=== PATIENT | female | born 1985 | race Caucasian/White ===

== ENCOUNTER → 2017-06-26 09:30 | Outpatient (CLI) | payer OTHER, MEDICAID, SELFPAY ==
[2017-06-26 10:26] LABS: Alanine Aminotransferase 163 IU/L (9-52); Albumin 4.4 g/dL (3.5-5.0); Albumin Globulin Ratio 1.2 (1.0-2.8); Alkaline Phosphatase 98 U/L (38-126); Aspartate Aminotransferase 92 IU/L (14-36); Bilirubin Total 0.7 mg/dL (0.2-1.3); Calcium 8.9 mg/dL (8.4-10.2); Estimated Glomerular Filt Rate > 60.0 mL/min (>60); Globulin 3.6 g/dL (1.7-4.1); Glucose 111 mg/dL (70-100); HEMOLYSIS < 15 (0-50); Sodium 140 mmol/L (137-145)
[2017-06-28 10:53] LABS: Hepatitis A Antibody IgM NONREACTIVE; Hepatitis Acute Panel Interp 0.06; Hepatitis B Core Antibody IgM NONREACTIVE; Hepatitis B Surface Antigen NONREACTIVE; Hepatitis C Antibody NONREACTIVE
[2017-06-29 16:46] LABS: HCG Quantitative /Beta subunit < 2.39 mIU/mL
== END ==
PROVIDERS: PCP Family Medicine; Visit Provider Family Medicine
DX: R74.8 Abnormal levels of other serum enzymes (principal); Z32.00 Encounter for pregnancy test, result unknown
CPT/HCPCS: 36415; 80053; 80074; 84702

== ENCOUNTER → 2017-07-07 15:29 | Outpatient (CLI) | payer OTHER, MEDICAID, SELFPAY ==
--- NOTE | 2017-07-07 15:32 | DI.US.S_ITS ---
PROCEDURE: US ABDOMEN COMPLETE INDICATIONS: elevated LFT's TECHNIQUE: Real-time scanning was performed of the abdominal and retroperitoneal organs, with image documentation. COMPARISON: [facility], US, ABDOMEN COMPLETE, 07/23/2015, 8:08. FINDINGS: Liver: Liver is diffusely increased in echogenicity. No focal hepatic abnormalities identified. Normal hepatic size. Gallbladder: The 2.1 cm solitary gallstone. No gallbladder wall thickening. Biliary ducts: Intrahepatic bile ducts are non-dilated. Extrahepatic bile duct not well-seen. Normal is 6-7 mm or less in diameter, or 10 mm or less post-cholecystectomy. Pancreas: Visualized portions of the pancreas are sonographically normal. Spleen: Spleen is normal in size and homogeneous in echotexture. Kidneys: Kidneys are normal in size and echotexture. Right kidney measures 12 cm long; left kidney measures 12 cm long. No hydronephrosis or nephrolithiasis. No solid masses. Aorta: Visualized aorta is normal in caliber at less than 3 cm. Iliacs: Not well-seen. IVC: Not well-seen. Miscellaneous: No free abdominal fluid. IMPRESSION: 1. Increased hepatic echogenicity noted likely related to fatty infiltration of the liver but other sources of hepatocellular disease cannot be excluded. Recommend clinical correlation. 2. Cholelithiasis. Dictated by: Fer ANGEL Interpreted: Beka Shetty MD on 07/07/2017 at 16:38 Approved by: Beka Shetty M.D. on 07/07/2017 at 16:44
[2017-07-07 16:29] LABS: Alanine Aminotransferase 163 IU/L (9-52); Aspartate Aminotransferase 85 IU/L (14-36)
== END ==
PROVIDERS: PCP Family Medicine; Visit Provider Family Medicine
DX: R79.9 Abnormal finding of blood chemistry, unspecified (principal); R94.5 Abnormal results of liver function studies; R10.13 Epigastric pain; K80.20 Calculus of gallbladder without cholecystitis without obstruction
CPT/HCPCS: 36415; 76700; 84450; 84460

== ENCOUNTER → 2017-07-20 16:53 | Outpatient (CLI) | payer OTHER, MEDICAID, SELFPAY ==
[2017-07-20 18:35] LABS: Alanine Aminotransferase 101 IU/L (9-52); Aspartate Aminotransferase 58 IU/L (14-36)
[2017-07-20 18:53] LABS: Follicle Stimulating Hormone 2.03 mIU/mL; HCG Quantitative /Beta subunit < 2.39 mIU/mL; Prolactin 29.2 ng/mL (3.0-18.6)
== END ==
PROVIDERS: PCP Family Medicine; Visit Provider Family Medicine
DX: R74.8 Abnormal levels of other serum enzymes (principal); N91.2 Amenorrhea, unspecified
CPT/HCPCS: 36415; 83001; 84146; 84450; 84460; 84702

== ENCOUNTER → 2017-08-03 19:15 | Outpatient (CLI) | payer OTHER, MEDICAID, SELFPAY ==
--- NOTE | 2017-08-03 19:21 | DI.MRI.S_ITS ---
PROCEDURE: MR BRAIN (PITUITARY) WWO CON INDICATIONS: elevated prolactin level TECHNIQUE: Noncontrast sagittal and axial FLAIR, axial gradient echo, axial diffusion and ADC through the brain. Thin-slice sagittal and coronal T1 spin echo, coronal T2 fast spin echo through the pituitary. After the administration contrast, optional dynamic coronal T1 spin echo, thin-slice coronal and sagittal T1 spin echo images through the pituitary fossa; axial T1 spin echo with fat saturation through the brain. COMPARISON: None. FINDINGS: Image quality: Excellent. Pituitary Gland: The pituitary gland is slightly prominent in size and normal morphology. A 2 mm nodule with hyperintense signal to the pituitary gland is noted in the left aspect of the pituitary. On dynamic contrast-enhanced images, no definitive focal area of rapid washout to suggest microadenoma. CSF Spaces: Ventricles are normal in size and shape. Basal cisterns are patent. No extra-axial fluid collections. Brain: No intracranial bleeds or mass effects. No abnormal intracranial enhancement. Miranda-white matter interface is intact. Diffusion weighted images demonstrate no acute ischemic insults. Brainstem is normal. Normal intravascular flow voids are present. Skull and face: Calvarial marrow is normal in signal. Orbits appear normal. Sinuses: Sinuses and mastoids are clear. IMPRESSION: Possible 2 mm to 3 microadenoma arising from the left side of the pituitary gland. The typical rapid washout on dynamic enhanced images is not visualized, which could be secondary to its small size. Dictated by: David Wallace M.D. on 08/04/2017 at 10:36 Approved by: David Wallace M.D. on 08/04/2017 at 13:20
== END ==
PROVIDERS: Family Provider Family Medicine; PCP Family Medicine; Visit Provider Family Medicine
DX: E22.1 Hyperprolactinemia (principal)
CPT/HCPCS: 70553; A9579

== ENCOUNTER 2017-08-25 14:25 | Emergency (ER) | payer OTHER, MEDICAID, SELFPAY ==
[2017-08-25 14:28] VITALS: BP 174/109; PULSE 99; RESP 14; TEMP 36.9; O2SAT 97; BMI 49.5
[2017-08-25 16:30] VITALS: BP 146/97; PULSE 92; RESP 18; O2SAT 97
--- NOTE | 2017-08-25 16:34 | ED.GENADULT ---
HPI - General Adult <QUAN Cameron - Last Filed: 08/25/17 21:47> General Chief complaint: Hypertension Stated complaint: HIGH BLOOD PRESSURE Time Seen by Provider: 08/25/17 16:34 History of Present Illness HPI narrative: 32-year-old female here for complaint of having elevated blood pressure over the past 2-3 weeks. She has recently been diagnosed with a nodule to her thyroid and was sent by her primary care provider to see Endocrinology. While she saw Endocrinology last week he started her on nifedipine has states that her blood pressure has still been increased on and off throughout the day. She also states she has had a headache for the last couple of weeks as well. She denies any chest pain no shortness of breath. She denies any other physical concerns. She states that normally work her blood pressure runs higher. No other concerns or complaints Related Data Home Medications Medication Instructions Recorded Confirmed multivitamin [Multiple Vitamins] 1 tab PO QDAY #0 02/19/17 milk thistle 150 mg capsule 150 mg PO BID 08/10/17 08/10/17 Previous Rx's Medication Instructions Recorded sertraline 25 mg tablet 50 mg PO QDAY #60 tab 07/21/17 Allergies Allergy/AdvReac Type Severity Reaction Status Date / Time INGREDIENT: NKDA - NO KNOWN Allergy Unknown Uncoded 08/25/17 14:28 DRUG ALLERGIES Review of Systems <QUAN Cameron - Last Filed: 08/25/17 21:47> Constitutional Reports headache(s) Eyes Denies change in vision, Denies eye discharge, Denies irritation and Denies loss of vision ENT Ears, Nose, Mouth, and Throat: Reports headache(s) Cardiovascular Denies chest pain, Denies irregular heart rhythm, Denies lightheadedness, Denies palpitations, Denies dyspnea, Denies dyspnea on exertion and Denies orthopnea Comments: Elevated blood pressure Respiratory Denies cough, Denies dyspnea, Denies dyspnea on exertion and Denies wheezing Gastrointestinal Gastrointestinal: Denies abdominal pain, Denies change in bowel habits, Denies diarrhea, Denies nausea and Denies vomiting Genitourinary Denies hematuria, Denies flank pain, Denies urinary incontinence and Denies urinary urgency Musculoskeletal Denies back pain, Denies muscle weakness, Denies numbness and Denies tingling Integumentary/Breasts Denies pruritus, Denies erythema, Denies rash and Denies wounds Neurologic Denies confusion, Reports headache(s), Denies loss of vision, Denies numbness and Denies tingling Psychiatric Denies anxiety, Denies confusion, Denies depression, Denies homicidal ideation and Denies suicidal ideation Endocrine Denies palpitations Hematologic/Lymphatic Denies easy bruising Allergic/Immunologic Denies wheezing Exam <QUAN Cameron - Last Filed: 08/25/17 21:47> Initial Vital Signs Initial Vital Signs: Vital Signs Temperature 98.4 F 08/25/17 14:28 Pulse Rate 99 H 08/25/17 14:28 Respiratory Rate 14 08/25/17 14:28 Blood Pressure 174/109 H 08/25/17 14:28 Pulse Oximetry 97 08/25/17 14:28 Const General: cooperative and well developed Nutritional Appearance: well nourished Orientation: alert, awake, oriented x3 and not confused HENMT Mouth: oral mucosae normal and moist mucous membranes Eyes Conjunctivae: conjunctivae normal Sclera: sclerae normal Pupils: PERRL EOM: EOM intact bilaterally Resp Effort & Inspection: normal respiratory effort Auscultation: clear to auscultation bilaterally, no rales, no rhonchi and no wheezes Cardio Rate: regular rate Rhythm: regular rhythm Heart Sounds: no click, no gallops, no murmurs and no rubs Skin General: no rashes or lesions noted, No jaundice and No petechiae Neuro General: alert, oriented x3, gait normal and no focal motor deficits Speech: speech normal <Jalen Castaneda DO - Last Filed: 08/26/17 03:20> Initial Vital Signs Initial Vital Signs: Vital Signs Temperature 98.4 F 08/25/17 14:28 Pulse Rate 99 H 08/25/17 14:28 Respiratory Rate 14 08/25/17 14:28 Blood Pressure 174/109 H 08/25/17 14:28 Pulse Oximetry 97 08/25/17 14:28 Course <QUAN Cameron - Last Filed: 08/25/17 21:47> Orders Ordered: ED Orders 08/25/17 17:33 CT head/brain wo con Stat 08/25/17 17:52 Complete Blood Count AUTO DIFF Stat Comprehensive Metabolic Panel Stat Troponin I Stat Vital Signs - 8 hr 08/25/17 14:28 08/25/17 16:30 08/25/17 17:06 Temperature 98.4 F Pulse Rate 99 H 92 H 92 H Respiratory Rate 14 18 27 H Blood Pressure 174/109 H Blood Pressure [Left Arm] 146/97 H 133/85 H Pulse Oximetry 97 97 97 08/25/17 18:20 08/25/17 19:20 Temperature Pulse Rate 96 H 92 H Respiratory Rate 23 20 Blood Pressure 145/82 H Blood Pressure [Left Arm] 153/81 H Pulse Oximetry 98 100 <Jalen Castaneda DO - Last Filed: 08/26/17 03:20> Orders Ordered: ED Orders 08/25/17 17:33 CT head/brain wo con Stat 08/25/17 17:52 Complete Blood Count AUTO DIFF Stat Comprehensive Metabolic Panel Stat Troponin I Stat Vital Signs - 8 hr 08/25/17 14:28 08/25/17 16:30 08/25/17 17:06 Temperature 98.4 F Pulse Rate 99 H 92 H 92 H Respiratory Rate 14 18 27 H Blood Pressure 174/109 H Blood Pressure [Left Arm] 146/97 H 133/85 H Pulse Oximetry 97 97 97 08/25/17 18:20 08/25/17 19:20 Temperature Pulse Rate 96 H 92 H Respiratory Rate 23 20 Blood Pressure 145/82 H Blood Pressure [Left Arm] 153/81 H Pulse Oximetry 98 100 Medical Decision Making <QUAN Cameron - Last Filed: 08/25/17 21:47> MDM Narrative Medical decision making narrative: Due to headache CT of the head was obtained was negative for any acute findings. CBC and Chem panel were obtained and were negative for any acute findings of organ damage. Troponin was obtained and was also negative. Patient has follow up with her primary care provider in the next few days will have her follow up with primary care for further evaluation and treatment of blood pressure issues. Follow up with Endocrinology as directed. For any worsening symptoms return emergency room. [id number] Tylenol or Motrin as needed for any headache. Patient's blood pressure reduced after relaxing in the emergency room Lab Data Result diagrams: 08/25/17 17:52 08/25/17 17:52 Lab Results 08/25/17 08/25/17 Range/Units 17:52 17:52 WBC 10.8 (4.5-11.0) X10^3/uL RBC 4.70 (4.0-5.2) X10^6/uL Hgb 13.9 (12.0-16.0) g/dL Hct 40.7 (36-46) % MCV 86.7 (80-100) fL MCH 29.6 (26-34) PG MCHC 34.2 (30-36) % RDW 12.9 (11.6-14.8) % Plt Count 324 (150-400) X10^3/uL Neut % (Auto) 58.9 (50-75) % Lymph % (Auto) 29.5 (25-40) % [place] % (Auto) 8.0 (3-14) % Eos % (Auto) 2.8 (2-4) % Baso % (Auto) 0.8 (0-2) % Neut # (Auto) 6400 H (5391-4816) /uL Sodium 140 (137-145) mmol/L Potassium 3.8 (3.4-5.1) mmol/L Chloride 98 (98-107) mmol/L Carbon Dioxide 30 (22-32) mmol/L BUN 10 (7-17) mg/dL Creatinine 0.70 (0.52-1.04) mg/dL Estimated GFR > 60.0 (>60) mL/min BUN/Creatinine Ratio 14.3 (6-22) Glucose 97 (70-100) mg/dL Calcium 9.4 (8.4-10.2) mg/dL Total Bilirubin 0.5 (0.2-1.3) mg/dL AST 90 H (14-36) IU/L ALT 150 H (9-52) IU/L Alkaline Phosphatase 86 (38-126) U/L Troponin I < 0.012 (0.01-0.034) ng/mL Total Protein 7.7 (6.3-8.2) g/dL Albumin 4.6 (3.5-5.0) g/dL Globulin 3.1 (1.7-4.1) g/dL Albumin/Globulin Ratio 1.5 (1.0-2.8) Imaging Data CT scan - head: Radiologist's impression: Signed Patient: Laura Esteban MR#: [id number] : 1985 Acct:[id number] Age/Sex: 32 / F Date of Service: 08/25/17 Loc: ED Accession Number: [id number] Procedure: CT head/brain wo con Ordering Provider: Bebeto Smith PROCEDURE: CT HEAD/BRAIN WO CON INDICATIONS: Elevated blood pressure and headache TECHNIQUE: Noncontrast 4.5 mm thick angled axial sections acquired from the foramen magnum to the vertex, with coronal and sagittal reformats. For radiation dose reduction, the following was used: automated exposure control, adjustment of mA and/or kV according to patient size. COMPARISON: None. FINDINGS: Image quality: Excellent. CSF spaces: Basal cisterns are patent. No extra-axial fluid collections. Ventricles are normal in size and shape. Brain: No midline shift. No intracranial masses or hemorrhage. Miranda-white matter interface is normal. Skull and face: Calvarium and visualized facial bones are intact, without suspicious lesions. Sinuses: Visualized sinuses and mastoids are clear. IMPRESSION: Negative head CT Dictated by: Gabino Julian M.D. on 08/25/2017 at 18:39 Approved by: Gabino Julian M.D. on 08/25/2017 at 18:40 <Jalen Castaneda, - Last Filed: 08/26/17 03:20> Lab Data Lab Results 08/25/17 08/25/17 Range/Units 17:52 17:52 WBC 10.8 (4.5-11.0) X10^3/uL RBC 4.70 (4.0-5.2) X10^6/uL Hgb 13.9 (12.0-16.0) g/dL Hct 40.7 (36-46) % MCV 86.7 (80-100) fL MCH 29.6 (26-34) PG MCHC 34.2 (30-36) % RDW 12.9 (11.6-14.8) % Plt Count 324 (150-400) X10^3/uL Neut % (Auto) 58.9 (50-75) % Lymph % (Auto) 29.5 (25-40) % [place] % (Auto) 8.0 (3-14) % Eos % (Auto) 2.8 (2-4) % Baso % (Auto) 0.8 (0-2) % Neut # (Auto) 6400 H (1905-5806) /uL Sodium 140 (137-145) mmol/L Potassium 3.8 (3.4-5.1) mmol/L Chloride 98 (98-107) mmol/L Carbon Dioxide 30 (22-32) mmol/L BUN 10 (7-17) mg/dL Creatinine 0.70 (0.52-1.04) mg/dL Estimated GFR > 60.0 (>60) mL/min BUN/Creatinine Ratio 14.3 (6-22) Glucose 97 (70-100) mg/dL Calcium 9.4 (8.4-10.2) mg/dL Total Bilirubin 0.5 (0.2-1.3) mg/dL AST 90 H (14-36) IU/L ALT 150 H (9-52) IU/L Alkaline Phosphatase 86 (38-126) U/L Troponin I < 0.012 (0.01-0.034) ng/mL Total Protein 7.7 (6.3-8.2) g/dL Albumin 4.6 (3.5-5.0) g/dL Globulin 3.1 (1.7-4.1) g/dL Albumin/Globulin Ratio 1.5 (1.0-2.8) Discharge Plan Departure Patient Disposition: Home, Self-Care Clinical Impression: Elevated blood pressure reading Discharge Date/Time: 08/25/17 19:20 Interventions: ED Discharge Assessment Last Done: 08/25/17 19:20 Instructions: DI for High Blood Pressure Activity Restrictions/Additional Instructions: Laboratory results and head CT were obtained today and were unremarkable. Recommend follow up with primary care provider in the next few days for re-evaluation and discussion of treatment for hypertension. For any worsening symptoms return to the emergency room. Follow up with Endocrinology as directed. Prescriptions: No Action multivitamin [Multiple Vitamins] 1 EACH tablet 1 tab PO QDAY Qty: 0 RF: 0 sertraline 25 mg tablet 50 mg PO QDAY Qty: 60 RF: 5 milk thistle 150 mg capsule 150 mg PO BID RF: 0 Referrals: Taylor Juarez MD [Primary Care Provider] - <Jalen Castaneda DO - Last Filed: 08/26/17 03:20> Cosign ED Attending Lucianoature Attestation: I was immediately available in the department for consultation. Documentation has been reviewed. I agree with assessment and plan.
[2017-08-25 17:06] VITALS: BP 133/85; PULSE 92; RESP 27; O2SAT 97
--- NOTE | 2017-08-25 17:33 | DI.CT.S_ITS ---
PROCEDURE: CT HEAD/BRAIN WO CON INDICATIONS: Elevated blood pressure and headache TECHNIQUE: Noncontrast 4.5 mm thick angled axial sections acquired from the foramen magnum to the vertex, with coronal and sagittal reformats. For radiation dose reduction, the following was used: automated exposure control, adjustment of mA and/or kV according to patient size. COMPARISON: None. FINDINGS: Image quality: Excellent. CSF spaces: Basal cisterns are patent. No extra-axial fluid collections. Ventricles are normal in size and shape. Brain: No midline shift. No intracranial masses or hemorrhage. Miranda-white matter interface is normal. Skull and face: Calvarium and visualized facial bones are intact, without suspicious lesions. Sinuses: Visualized sinuses and mastoids are clear. IMPRESSION: Negative head CT Dictated by: Gabino Julian M.D. on 08/25/2017 at 18:39 Approved by: Gabino Julian M.D. on 08/25/2017 at 18:40
--- NOTE | 2017-08-25 17:34 | PC.NURSE ---
reports that her blood pressure has been elevated today. denies any cp, nausea or vomitting
[2017-08-25 18:11] LABS: Add Manual Diff / Slide Review NO; Basophils Percent Auto 0.8 % (0-2); Eosinophils Percent Auto 2.8 % (2-4); Hematocrit 40.7 % (36-46); Hemoglobin 13.9 g/dL (12.0-16.0); Lymphocytes Percent Auto 29.5 % (25-40); Mean Corpuscular HGB Conc 34.2 % (30-36); Mean Corpuscular Hemoglobin 29.6 PG (26-34); Mean Corpuscular Volume 86.7 fL (80-100); Neutrophils Absolute Auto 6400 /uL (3000-5900); Neutrophils Percent Auto 58.9 % (50-75); Platelet Count 324 X10^3/uL (150-400); Red Cell Distribution Width 12.9 % (11.6-14.8); White Blood Cell Count 10.8 X10^3/uL (4.5-11.0)
[2017-08-25 18:16] LABS: Alanine Aminotransferase 150 IU/L (9-52); Albumin 4.6 g/dL (3.5-5.0); Albumin Globulin Ratio 1.5 (1.0-2.8); Alkaline Phosphatase 86 U/L (38-126); Aspartate Aminotransferase 90 IU/L (14-36); BUN Creatinine Ratio 14.3 (6-22); Bilirubin Total 0.5 mg/dL (0.2-1.3); Blood Urea Nitrogen 10 mg/dL (7-17); Calcium 9.4 mg/dL (8.4-10.2); Carbon Dioxide 30 mmol/L (22-32); Chloride 98 mmol/L (98-107); Estimated Glomerular Filt Rate > 60.0 mL/min (>60); Globulin 3.1 g/dL (1.7-4.1); Glucose 97 mg/dL (70-100); HEMOLYSIS < 15 (0-50); Potassium 3.8 mmol/L (3.4-5.1); Sodium 140 mmol/L (137-145); Total Protein 7.7 g/dL (6.3-8.2)
[2017-08-25 18:20] VITALS: BP 153/81; PULSE 96; RESP 23; O2SAT 98
[2017-08-25 18:29] LABS: Troponin I < 0.012 ng/mL (0.01-0.034)
[2017-08-25 19:20] VITALS: BP 145/82; PULSE 92; RESP 20; O2SAT 100
== END 2017-08-25 19:20 | disposition home or self-care (01) ==
PROVIDERS: Emergency Provider Nurse Practitioner Family; Family Provider Family Medicine; PCP Family Medicine
DX: R03.0 Elevated blood-pressure reading, without diagnosis of hypertension (principal); R51 Headache
CPT/HCPCS: 70450; 80053; 84484; 85025; 93041; 99283; 99285

== ENCOUNTER → 2017-09-22 13:35 | Outpatient (CLI) | payer OTHER, MEDICAID, SELFPAY ==
--- NOTE | 2017-09-22 13:36 | DI.ECHO.S_ITS ---
[facility]---------+ [facility] +---------+ : : [address] : : : : [id number] : : : : Phone: [phone] Echocardiogram Report + + :Name: BIMAL HERNANDEZ Study Date: 09/22/2017 Height: 62 in : :[facility] Weight: 270 lb : : Gender: Female BSA: 2.2 m2 : :: 1985 Age: 32 yrs BP: 150/90 mmHg: :Reason For Study: Murmur : : Performed By: Paz Braun : :Referring: MARION GLASGOW : + + Interpretation Summary The left ventricle is normal in size, wall thickness, and systolic function without any focal wall motion abnormalities. The ejection fraction is estimated to be 60-65%. Assessment of diastolic parameters indicates normal left ventricular diastolic function and normal filling pressures. The right ventricle grossly appears normal in size with probable normal systolic function. The right ventricular systolic pressure is estimated at 28 mmHg assuming a right atrial pressure of 3 mm Hg. The left atrial size is normal. Right atrial size is normal. There is no significant valvular heart disease. The aortic root is normal size. Procedure: A two-dimensional transthoracic echocardiogram with color flow and Doppler was performed. The study quality was technically adequate. There is no prior echocardiogram noted for this patient. The patient was in normal sinus rhythm during the exam. Left Ventricle: The left ventricle is normal in size, wall thickness, and systolic function without any focal wall motion abnormalities. The ejection fraction is estimated to be 60-65%. Assessment of diastolic parameters indicates normal left ventricular diastolic function and normal filling pressures. Right Ventricle: The right ventricle grossly appears normal in size with probable normal systolic function. Atria: The left atrial size is normal. Right atrial size is normal. Mitral Valve: The mitral valve is normal in structure and function. There is no mitral regurgitation noted. Aortic Valve: The aortic valve is trileaflet. The aortic valve opens well. No aortic regurgitation is present. Tricuspid Valve: The tricuspid valve is normal in structure and function. There is a trace or physiologic amount of tricuspid regurgitation. The right ventricular systolic pressure is estimated at 28 mmHg assuming a right atrial pressure of 3 mm Hg. Pulmonic Valve: The pulmonic valve is normal in structure and function. There is no pulmonic valvular regurgitation. There is no significant valvular heart disease. Great Vessels: The aortic root is normal size. The dimensions of the ascending aorta are normal. The IVC is of normal diameter and collapses greater than 50% with a sniff. This suggests a low right atrial pressure of 3 mm Hg. Pericardium/ Pleura There is no pericardial effusion. There is no pleural effusion. MMode/2D Measurements & Calculations LVIDd: 4.3 cm Ao root diam: 3.1 cm LVIDs: 2.8 cm Aortic Jxn: 2.5 cm FS: 35.5 % asc Aorta Diam: 3.3 cm EPSS: 0.38 cm Ao Arch Diam (Prox Trans): 2.8 cm IVSd: 0.88 cm LVPWd: 1.1 cm LV adames. diameter/BSA (cm/m^2): 2.0 LV sys. diameter/BSA (cm/m^2): 1.3 LA dimension: 3.4 cm RA long axis: 4.4 cm LA A2 area: 18.4 cm2 RA area: 10.2 cm2 LA A4 area: 18.1 cm2 RA vol: 20.0 ml LA length (vol): 5.2 cm RA : 9.2 ml/m2 LA vol: 54.2 ml IVC diam: 1.2 cm LA vol index: 25.0 ml/m2 RVDd major: 5.1 cm RVD1 (basal): 3.1 cm RVD2 (mid): 2.7 cm Doppler Measurements & Calculations Ao V2 max: 148.4 cm/sec MV E max bryon: 81.9 cm/sec Ao V2 mean: 99.9 cm/sec MV A max bryon: 76.7 cm/sec Ao max P.8 mmHg MV E/A: 1.1 Ao mean P.6 mmHg Med Peak E' Bryon: 8.2 cm/sec Ao V2 VTI: 32.1 cm E/E' med: 10.0 Lat Peak E' Bryon: 9.4 cm/sec E/E' lat: 8.7 E/e' average: 9.4 MV dec time: 0.19 sec MV P1/2t: 58.1 msec TR max bryon: 248.4 cm/sec MV P1/2t max bryon: 83.2 cm/sec TR max P.7 mmHg MVA(P1/2t): 3.8 cm2 PA V2 max: 83.8 cm/sec PA V2 mean: 60.8 cm/sec PA mean P.7 mmHg Reading Physician:ANGELA
== END ==
PROVIDERS: Family Provider Family Medicine; PCP Family Medicine; Visit Provider Family Medicine
DX: R01.1 Cardiac murmur, unspecified (principal); I10 Essential (primary) hypertension
CPT/HCPCS: 93306

== ENCOUNTER → 2017-10-19 08:55 | Outpatient (CLI) | payer OTHER, MEDICAID, SELFPAY ==
[2017-10-19 10:46] LABS: Prolactin 10.6 ng/mL (3.0-18.6)
[2017-10-19 11:00] LABS: Cortisol AM (Before 10AM) 0.88 ug/dL (4.46-22.7)
== END ==
PROVIDERS: PCP Family Medicine; Visit Provider Internal Medicine
DX: D49.7 Neoplasm of unspecified behavior of endocrine glands and other parts of nervous system (principal)
CPT/HCPCS: 36415; 82533; 84146

== ENCOUNTER → 2018-03-23 09:35 | Outpatient (CLI) | payer OTHER, MEDICAID, SELFPAY ==
[2018-03-23 10:04] LABS: Add Manual Diff / Slide Review NO; Basophils Absolute Auto 100 /uL (0-100); Basophils Percent Auto 0.9 % (0-2); Eosinophils Absolute Auto 100 /uL (0-450); Hematocrit 42.3 % (36-46); Hemoglobin 14.5 g/dL (12.0-16.0); Lymphocytes Absolute Auto 2400 /uL (1100-4500); Lymphocytes Percent Auto 25.1 % (25-40); Mean Corpuscular HGB Conc 34.3 % (30-36); Mean Corpuscular Hemoglobin 29.3 PG (26-34); Mean Corpuscular Volume 85.5 fL (80-100); Monocytes Absolute Auto 800 /uL (0-900); Monocytes Percent Auto 7.9 % (3-14); Neutrophils Absolute Auto 6300 /uL (1500-7000); Neutrophils Percent Auto 65.1 % (50-75); Platelet Count 316 X10^3/uL (150-400); Red Blood Cell Count 4.95 X10^6/uL (4.0-5.2); Red Cell Distribution Width 12.8 % (11.6-14.8); White Blood Cell Count 9.7 X10^3/uL (4.5-11.0)
[2018-03-23 11:01] LABS: Appearance Urine UA CLEAR; Bilirubin Urine UA NEGATIVE (NEGATIVE); Color Urine UA YELLOW; Glucose Urine UA 1+ g/dL (Negative); Ketones Urine UA NEGATIVE (NEGATIVE); Leukocyte Esterase Urine UA NEGATIVE (NEGATIVE); Nitrite Urine UA NEGATIVE (Negative); Occult Blood Urine UA NEGATIVE (Negative); Protein Urine UA NEGATIVE (Negative); Urobilinogen Urine UA 0.2 E.U./dL (0.2); pH Urine UA 6.5 (4.5-8.0)
[2018-03-23 11:32] LABS: Hepatitis B Surface Antigen NEGATIVE s/c (NEGATIVE); Rubella Antibody IgG 76.6 IU/mL (>15)
[2018-03-23 11:49] LABS: HIV 1 and 2 Antibody NEGATIVE (NEGATIVE); Hep C Virus Ab w/Reflex Quant NEGATIVE s/c (NEGATIVE)
[2018-03-24 18:16] LABS: RPR Screen Nonreactive (Nonreactive)
== END ==
PROVIDERS: PCP Family Medicine; Visit Provider Obstetrics & Gynecology
DX: Z34.81 Encounter for supervision of other normal pregnancy, first trimester (principal)
CPT/HCPCS: 36415; 80055; 81003; 86703; 86787; 86803; 86850; 86900; 86901; 87086

== ENCOUNTER → 2018-06-16 09:04 | Outpatient (CLI) | payer OTHER, MEDICAID, SELFPAY ==
--- NOTE | 2018-06-16 09:09 | DI.US.S_ITS ---
PROCEDURE: US OB >= 14 WEEKS FETUS INDICATIONS: Anatomy Survey OUTSIDE/PRIOR DATING DATA: Last menstrual period (LMP): 01/18/18. LMP-based estimated date of delivery (MEAGAN): 10/25/18. First dating scan (date and location): 04/20/18. Estimated date of delivery (MEAGAN) from first dating scan: 11/03/18. TECHNIQUE: Real-time scanning was performed of the fetus, with image documentation and biometric measurements. Endovaginal scanning: Not performed COMPARISON: [facility], , OB >= 14 WEEKS FETUS, 05/18/2018, 9:41. FINDINGS: General: A single living intrauterine gestation is present. Presentation: Vertex Placenta: Placental position is posterior, without previa. Amniotic fluid index: 11.9 cm, normal range is 5-24 cm. heart rate: 152 beats per minute. Maternal cervical canal: 3.6 cm long. Normal lower limit is 2.5 cm. biometrics: Biparietal diameter: 19 weeks 5 days Head circumference: 19 weeks 4 days Abdominal circumference: 21 weeks 2 days Femur length: 20 weeks 6 days Estimated gestational age from initial scan: 20 weeks Composite gestational age from present scan: 20 weeks 3 days Estimated weight and percentile: 382 g; 89th percentile Measurement variability for biometric dating: +/- 7 days from 14 weeks to 15 weeks 6 days gestation, +/- 10 days from 16 weeks to 21 weeks 6 days gestation, +/- 2 weeks from 22 weeks to 27 weeks 6 days gestation, +/- 3 weeks for 28 weeks gestation or later. weight reference: 4500 g or EFW >90/95% is considered macrosomia or large for gestational age. EFW <10% is small for gestational age. EFW 5% or less is considered intra-uterine growth restriction. Maternal fibroid present measuring 4.0 x 4.5 x 5.3 cm along the left posterior uterine margin. Anatomic survey: Neuro: Ventricles are non-dilated at less than 10 mm. Cisterna magna is normal at 3-11 mm. Cerebellum is normal in size and morphology. Nuchal skin fold: Normal at less than 6 mm between 14-21 weeks gestational age. Face: Nose and lips, facial profile are normal. Spine: No evidence for spina bifida. Heart: 4-chambered heart is present, with normal ventricular outflow tracts. Diaphragm: Diaphragm is intact. Stomach: Left-sided stomach is present. Kidneys: No hydronephrosis. Normal is less than 5 mm in 2nd trimester, less than 7 mm in 3rd trimester. Cord: 3-vessel cord has orthotopic insertion. Bladder: Normal in size. Extremities: All 4 extremities identified. IMPRESSION: 1. Single living IUP redemonstrated and interval growth is upper limits of normal. 2. Normal anatomic survey. Dictated by: Fer Faustin [facility] Interpreted: Etienne Sherman MD on 06/16/2018 at 11:13 Approved by: Etienne Sherman M.D. on 06/16/2018 at 14:12
[2018-06-24 10:06] LABS: Cigarette Smoker NOT GIVEN; Donated Egg NOT GIVEN; Donor Egg Age NOT GIVEN; Estriol, Free 2.75 ng/mL; Inhibin A, Dimeric 124 pg/mL; Maternal Weight 263 lbs; Number of Fetuses 1; Previous Pregnancy Down Syndro NOT GIVEN; hCG, MoM 0.91; hCG, Serum 13.2 IU/mL
== END ==
PROVIDERS: PCP Family Medicine; Visit Provider Obstetrics & Gynecology
DX: Z34.82 Encounter for supervision of other normal pregnancy, second trimester (principal); Z3A.20 20 weeks gestation of pregnancy
CPT/HCPCS: 36415; 76811; 82105; 82677; 84702; 86336

== ENCOUNTER → 2018-07-29 09:10 | Outpatient (CLI) | payer OTHER, MEDICAID, SELFPAY ==
[2018-07-29 11:00] LABS: Hematocrit 34.8 % (36-46); Hemoglobin 11.8 g/dL (12.0-16.0)
[2018-07-29 12:22] LABS: GTT (PREG) 1 Hour PP 50gm Dose 243 mg/dL (76-139)
== END ==
PROVIDERS: PCP Family Medicine; Visit Provider Obstetrics & Gynecology
DX: Z34.82 Encounter for supervision of other normal pregnancy, second trimester (principal)
CPT/HCPCS: 36415; 82950; 85014; 85018; 86850

== ENCOUNTER → 2018-08-24 11:09 | Outpatient (CLI) | payer OTHER, MEDICAID, SELFPAY ==
--- NOTE | 2018-08-24 11:11 | DI.US.S_ITS ---
PROCEDURE: US OB LIMITED INDICATIONS: GROWTH SCAN OUTSIDE/PRIOR DATING DATA: Last menstrual period (LMP): 01/18/18. LMP-based estimated date of delivery (MEAGAN): 10/25/18. First dating scan (date and location): 04/20/18. Estimated date of delivery (MEAGAN) from first dating scan: 11/03/18. TECHNIQUE: Real-time scanning was performed of the fetus, with image documentation and biometric measurements. Endovaginal scanning: Not performed COMPARISON: None. FINDINGS: General: A single living intrauterine gestation is present. Presentation: Vertex Placenta: Placental position is posterior, without previa. Amniotic fluid index: 18.6 cm, normal range is 5-24 cm. heart rate: 165 beats per minute. Maternal cervical canal: Not evaluated. Normal lower limit is 2.5 cm. biometrics: Biparietal diameter: 7.5 cm, 30 weeks, one day Head circumference: 27.4 cm, 29 week, six-day Abdominal circumference: 28.7 cm, 32 weeks, 5 days Femur length: 6 cm, 31 week, 3 days Estimated gestational age from initial scan: 29 weeks 6 days. Composite gestational age from present scan: 31 weeks Estimated weight and percentile: 1840 g, 94% Measurement variability for biometric dating: +/- 7 days from 14 weeks to 15 weeks 6 days gestation, +/- 10 days from 16 weeks to 21 weeks 6 days gestation, +/- 2 weeks from 22 weeks to 27 weeks 6 days gestation, +/- 3 weeks for 28 weeks gestation or later. weight reference: 4500 g or EFW >90/95% is considered macrosomia or large for gestational age. EFW <10% is small for gestational age. EFW 5% or less is considered intra-uterine growth restriction. Other: Not applicable. IMPRESSION: 1. Single live intrauterine with fetus in vertex presentation. heart rate is 165 beats per minute. 2. Estimated weight is 1840 g, which is at 94%. Dictated by: Etienne Sherman M.D. on 08/24/2018 at 14:25 Approved by: Etienne Sherman M.D. on 08/24/2018 at 14:27
== END ==
PROVIDERS: PCP Family Medicine; Visit Provider Obstetrics & Gynecology
DX: Z36.89 Encounter for other specified antenatal screening (principal); O24.419 Gestational diabetes mellitus in pregnancy, unspecified control; Z3A.31 31 weeks gestation of pregnancy
CPT/HCPCS: 76815

== ENCOUNTER 2018-09-06 09:52 | Outpatient (CLI) | payer OTHER, MEDICAID, SELFPAY | END 2018-09-06 11:45 | disposition home or self-care (01) | LOC: LABOR 10:17 → OB 09-07 10:08 | PROVIDERS: Family Provider Obstetrics & Gynecology; PCP Family Medicine; Visit Provider Obstetrics & Gynecology | DX: Z34.83 Encounter for supervision of other normal pregnancy, third trimester (principal); Z3A.32 32 weeks gestation of pregnancy | CPT/HCPCS: 59025; G0378; G0379 ==

== ENCOUNTER 2018-09-13 09:52 | Outpatient (CLI) | payer OTHER, MEDICAID, SELFPAY ==
--- NOTE | 2018-09-13 11:23 | PM.OBTRLD ---
Visit Information Visit Information Date of evaluation: 09/13/18 Primary OB Provider: Veronica Magaña On-call OB Provider: Veronica Magaña Reason for Evaluation: Yes non-stress test non-stress test reason: diabetes and hypertension/pre-eclampsia [facility] Medical History (Updated 09/13/18 @ 11:24 by Veronica Magaña MD) Hypertension (Chronic) Acne (Chronic 1996) Anxiety (Chronic 2014) Depression (Chronic 2014) Hayfever (Chronic) Migraines (Chronic 1997) Chicken pox (Resolved 1990) Plantar warts (Resolved 1998) Surgical History (Updated 04/04/18 @ 05:30 by Veronica Magaña MD) Anesthesia (Resolved) History of tonsillectomy (Resolved ) Status post delivery (Resolved 04/16/09) Family History (Updated 08/10/17 @ 10:12 by Naina Poon) Brother Age: 29 Mental health problem Depression Child Age: 8 Mental health problem ADHD (attention deficit hyperactivity disorder) Father Age: 56 Prostate cancer Mental health problem ADHD (attention deficit hyperactivity disorder) Grandfather Heart disease Hypertension Liver failure Mother Age: 56 Mental health problem Anxiety Depression Grandfather Heart disease Hypertension High cholesterol Grandmother Hypertension Mental health problem Pneumonia Sister Age: 27 Mental health problem Bipolar disorder Social History Smoking Status: Never smoker Family History (Updated 08/10/17 @ 10:12 by Naina Poon) Brother Age: 29 Mental health problem Depression Child Age: 8 Mental health problem ADHD (attention deficit hyperactivity disorder) Father Age: 56 Prostate cancer Mental health problem ADHD (attention deficit hyperactivity disorder) Grandfather Heart disease Hypertension Liver failure Mother Age: 56 Mental health problem Anxiety Depression Grandfather Heart disease Hypertension High cholesterol Grandmother Hypertension Mental health problem Pneumonia Sister Age: 27 Mental health problem Bipolar disorder Social History Smoking Status: Never smoker Evaluation Evaluation Baseline heart rate: 145 Variability: Average (6-10) monitor accelerations: Present monitor decelerations: Absent Category of Tracing: I Diagnosis, Plan/Disposition Final Diagnosis (1) Gestational diabetes: Current Visit: Yes Status: Acute (2) 32 weeks gestation of : Current Visit: Yes Status: Acute Plan/Disposition Plan: Assessment: 32 wks gestation GDM HTN Plan: [facility]'s Follow up 1 week for NST OB Disposition: home
--- NOTE | 2018-09-13 11:26 | P.TNLD_ITS ---
Visit Information Visit Information Date of evaluation: 09/13/18 Primary OB Provider: Veronica Magaña On-call OB Provider: Veronica Magaña Reason for Evaluation: Yes non-stress test non-stress test reason: diabetes and hypertension/pre-eclampsia [facility] Medical History (Updated 09/13/18 @ 11:24 by Veronica Magaña MD) Hypertension (Chronic) Acne (Chronic 1996) Anxiety (Chronic 2014) Depression (Chronic 2014) Hayfever (Chronic) Migraines (Chronic 1997) Chicken pox (Resolved 1990) Plantar warts (Resolved 1998) Surgical History (Updated 04/04/18 @ 05:30 by Veronica Magaña MD) Anesthesia (Resolved) History of tonsillectomy (Resolved ) Status post delivery (Resolved 04/16/09) Family History (Updated 08/10/17 @ 10:12 by Naina Poon) Brother Age: 29 Mental health problem Depression Child Age: 8 Mental health problem ADHD (attention deficit hyperactivity disorder) Father Age: 56 Prostate cancer Mental health problem ADHD (attention deficit hyperactivity disorder) Grandfather Heart disease Hypertension Liver failure Mother Age: 56 Mental health problem Anxiety Depression Grandfather Heart disease Hypertension High cholesterol Grandmother Hypertension Mental health problem Pneumonia Sister Age: 27 Mental health problem Bipolar disorder Social History Smoking Status: Never smoker Family History (Updated 08/10/17 @ 10:12 by Naina Poon) Brother Age: 29 Mental health problem Depression Child Age: 8 Mental health problem ADHD (attention deficit hyperactivity disorder) Father Age: 56 Prostate cancer Mental health problem ADHD (attention deficit hyperactivity disorder) Grandfather Heart disease Hypertension Liver failure Mother Age: 56 Mental health problem Anxiety Depression Grandfather Heart disease Hypertension High cholesterol Grandmother Hypertension Mental health problem Pneumonia Sister Age: 27 Mental health problem Bipolar disorder Social History Smoking Status: Never smoker Evaluation Evaluation Baseline heart rate: 145 Variability: Average (6-10) monitor accelerations: Present monitor decelerations: Absent Category of Tracing: I Diagnosis, Plan/Disposition Final Diagnosis (1) Gestational diabetes: Current Visit: Yes Status: Acute (2) 32 weeks gestation of : Current Visit: Yes Status: Acute Plan/Disposition Plan: Assessment: 32 wks gestation GDM HTN Plan: [facility]'s Follow up 1 week for NST OB Disposition: home
== END 2018-09-13 11:30 | disposition home or self-care (01) ==
LOC: LABOR 10:19 → OB 09-15 12:03
PROVIDERS: PCP Family Medicine; Visit Provider Obstetrics & Gynecology
DX: O24.419 Gestational diabetes mellitus in pregnancy, unspecified control (principal); O16.9 Unspecified maternal hypertension, unspecified trimester; Z3A.32 32 weeks gestation of pregnancy
CPT/HCPCS: 59025; G0378; G0379

== ENCOUNTER 2018-09-19 16:35 | Outpatient (CLI) | payer OTHER, MEDICAID, SELFPAY | END 2018-09-19 17:34 | disposition home or self-care (01) | LOC: LABOR 16:43 → OB 09-20 11:35 | PROVIDERS: PCP Family Medicine; Visit Provider Obstetrics & Gynecology | DX: O47.03 False labor before 37 completed weeks of gestation, third trimester (principal); I10 Essential (primary) hypertension; O24.419 Gestational diabetes mellitus in pregnancy, unspecified control; Z3A.33 33 weeks gestation of pregnancy | CPT/HCPCS: 59025; G0378; G0379 ==

== ENCOUNTER → 2019-12-04 09:36 | Outpatient (CLI) | payer OTHER, MEDICAID, SELFPAY ==
[2019-12-04 10:42] LABS: Alanine Aminotransferase 83 IU/L (<35); Albumin 4.4 g/dL (3.5-5.0); Albumin Globulin Ratio 1.3 (1.0-2.8); Alkaline Phosphatase 73 U/L (38-126); Aspartate Aminotransferase 50 IU/L (14-36); BUN Creatinine Ratio 24.1 (6-22); Bilirubin Total 0.4 mg/dL (0.2-1.3); Blood Urea Nitrogen 13 mg/dL (7-17); Calcium 9.1 mg/dL (8.4-10.2); Carbon Dioxide 29 mmol/L (22-32); Chloride 102 mmol/L (98-107); Cholesterol 202 mg/dL (140-199); Estimated Glomerular Filt Rate > 60.0 mL/min (>60); Globulin 3.5 g/dL (1.7-4.1); Glucose 121 mg/dL (70-100); HDL Cholesterol 50 mg/dL (40-60); HEMOLYSIS < 15 (0-50); LDL Cholesterol Calculated 117 mg/dL (<100); Potassium 4.3 mmol/L (3.4-5.1); Sodium 137 mmol/L (137-145); Total Protein 7.9 g/dL (6.3-8.2); Triglycerides 177 mg/dL (35-150)
[2019-12-04 11:15] LABS: Creatinine Urine Random 56.5 mg/dL
[2019-12-04 11:17] LABS: Microalbumi Creatinin Ratio Ur 40.7 ug/mg CR (<30); Microalbumin Urine Random 2.3 mg/dL (0-1.6)
[2019-12-04 11:43] LABS: Hemoglobin A1C% w Est Avg Glu 6.1 % (4.0-6.0)
== END ==
PROVIDERS: PCP Family Medicine; Referring Provider Family Medicine; Visit Provider Family Medicine
DX: I10 Essential (primary) hypertension (principal); R73.03 Prediabetes
CPT/HCPCS: 36415; 80053; 80061; 82043; 82570; 83036

== ENCOUNTER → 2021-09-06 09:39 | Outpatient (CLI) | payer OTHER, MEDICAID, SELFPAY ==
[2021-09-06 10:41] LABS: Cholesterol 200 mg/dL (140-199); HDL Cholesterol 51 mg/dL (40-60); LDL Cholesterol Calculated 122 mg/dL (<100); Triglycerides 137 mg/dL (35-150)
== END ==
PROVIDERS: PCP Family Medicine; Referring Provider Family Medicine; Visit Provider Family Medicine
DX: I10 Essential (primary) hypertension (principal)
CPT/HCPCS: 36415; 80061

== ENCOUNTER → 2022-04-07 15:26 | Outpatient (CLI) | payer OTHER, MEDICAID, SELFPAY ==
--- NOTE | 2022-04-07 15:28 | DI.US.S_ITS ---
PROCEDURE: US ABDOMEN LIMITED INDICATIONS: Fatty liver TECHNIQUE: Real-time scanning was performed of the abdominal and retroperitoneal organs, with image documentation. COMPARISON: [facility], US, US ABDOMEN COMPLETE, 07/07/2017, 16:15. FINDINGS: Liver: Hepatomegaly. Severe diffuse hepatic steatosis. Gallbladder: Gallbladder is not well visualized. Possible 1.4 cm shadowing calcification in the gallbladder fossa which may represent a stone filled gallbladder. No findings to suggest pericholecystic fluid or wall thickening. Patient reports no prior cholecystectomy. Biliary ducts: Intrahepatic bile ducts are non-dilated. Extrahepatic bile duct caliber measures 4 mm. Normal is 6-7 mm or less in diameter, or 10 mm or less post-cholecystectomy. Pancreas: Visualized portions of the pancreas are sonographically normal. Miscellaneous: No free abdominal fluid. IMPRESSION: 1. Hepatomegaly with findings compatible with severe diffuse hepatic steatosis. 2. Gallbladder is not well visualized secondary to patient scanning characteristics. Suggestion of a stone filled gallbladder without sonographic evidence of acute cholecystitis. Dictated by: Joshua Nix M.D. on 04/07/2022 at 16:29 Approved by: Joshua Nix M.D. on 04/07/2022 at 16:31
== END ==
PROVIDERS: PCP Family Medicine; Referring Provider Family Medicine; Visit Provider Family Medicine
DX: K76.0 Fatty (change of) liver, not elsewhere classified (principal)
CPT/HCPCS: 76705

== ENCOUNTER → 2022-05-07 07:21 | Outpatient (CLI) | payer OTHER, MEDICAID, SELFPAY ==
[2022-05-07 08:35] LABS: Alanine Aminotransferase 87 IU/L (<35); Albumin 4.1 g/dL (3.5-5.0); Albumin Globulin Ratio 1.2 (1.0-2.8); Alkaline Phosphatase 101 U/L (38-126); Aspartate Aminotransferase 60 IU/L (14-36); BUN Creatinine Ratio 21.6 (6-22); Bilirubin Total 0.4 mg/dL (0.2-1.3); Blood Urea Nitrogen 11 mg/dL (7-17); Calcium 9.2 mg/dL (8.4-10.2); Carbon Dioxide 22 mmol/L (22-32); Cholesterol 224 mg/dL (140-199); Estimated Glomerular Filt Rate > 60 mL/min (>60); Globulin 3.4 g/dL (1.7-4.1); Glucose 299 mg/dL (70-100); HDL Cholesterol 59 mg/dL (40-60); HEMOLYSIS < 15 (0-50); LDL Cholesterol Calculated 134 mg/dL (<100); Total Protein 7.5 g/dL (6.3-8.2); Triglycerides 157 mg/dL (35-150)
[2022-05-07 08:41] LABS: Chloride 100 mmol/L (98-107); Potassium 4.8 mmol/L (3.4-5.1); Sodium 134 mmol/L (137-145)
[2022-05-08 09:38] LABS: Labcorp Hemoglobin (Hb) A1c 11.3 % (4.8-5.6)
== END ==
PROVIDERS: PCP Family Medicine; Referring Provider Family Medicine; Visit Provider Family Medicine
DX: I10 Essential (primary) hypertension (principal); R73.03 Prediabetes; Z13.220 Encounter for screening for lipoid disorders
CPT/HCPCS: 36415; 80053; 80061; 83036

== ENCOUNTER → 2022-06-18 14:07 | Outpatient (CLI) | payer OTHER, MEDICAID, SELFPAY ==
--- NOTE | 2022-07-02 16:49 | DIAB.INIT ---
Initial Diabetes Education Assessment Name: Laura Esteban Date: 06/18/22 Time: 220-325p Dx: Type II Diabetes Provider: Ricotrevon Sanchez presents for initial DM visit with , Ernesto. Also has appt with other RD for bariatric program. Newly dx with DM with hg1c of 11.3% 04/2022. Also endorses PMH of DM in 2019. PMH of PCOS and hepatic stenosis. Has lost 14# recently per report. Endorses diarrhea with morning dose of Metformin, may benefit from XR. Reports stressors in the last year, including mother's ca diagnosis, sister with substance abuse and work stress. States DM feels overwhelming, in terms of knowing what to do about it. Has been tracking food intake. Aiming for 1500-1700kcals. Diet recall indicate mostly moderate to low carb intake. Also low protein intake at breakfast and at snacks. Has cut out regular soda. Now only one 20oz diet soda per day per report. water x 1 gallon per day Anthropometrics: Ht: 63 Wt: 278# 04/2022 PCP visit Physical Activity: No program currently. Plans to start walking and using bikes. Self-Monitoring Blood Glucose: FBG 150s and pre lunch 150s. No meter or log book for review today. Diabetes Medications: 500mg Metformin BID 1.2mg Victoza daily Pertinent Labs: 04/2022 HgA1c: 11.3% AST: 60 H ALT: 87 H T H Chol: 224 H LDL: 134 H HDL: 59 Past Medical History: (Last Reviewed 01/20/19 @ 10:15 by Taylor Juarez MD) Acne (1996) Anxiety (2014) Chicken pox (1990) Depression (2014) Hayfever Hypertension Migraines (1997) Plantar warts (1998) Intervention: This participant was very receptive. Provided appropriate educational handouts. Discussed the following topics: Completed intake assessment. Pathophysiology of type 2 diabetes HgA1c, its correlation to blood glucose numbers, and rationale for goal Importance of self-monitoring, how often, and when to check. Suggested checking at different times to evaluate meals Plate Method, impact of macronutrients on blood sugar, meal timing, carbohydrate counting, pairing macronutrients and spreading out carbohydrates for better blood glucose management General recommended servings for carbohydrates at meals and snacks Role of physical activity and plan Created SMART goals for patient self-care and success. Goals: Start family walks after dinner Add pro to breakfast Pair CHO and pro at meals/snacks Aim for 30-45g CHO at meals Follow-up: [facility]Y EMMANUEL follow-up in 3-4 weeks Maya Whitehead RDN, [facility] Certified [facility] and [employer] P: [phone] Thank you for this referral
== END ==
PROVIDERS: Absent Provider Family Medicine; Family Provider Family Medicine; PCP Family Medicine; Referring Provider Family Medicine; Visit Provider Family Medicine
DX: E11.9 Type 2 diabetes mellitus without complications (principal); Z79.84 Long term (current) use of oral hypoglycemic drugs; Z79.85 Long-term (current) use of injectable non-insulin antidiabetic drugs; Z71.3 Dietary counseling and surveillance
CPT/HCPCS: G0108

== ENCOUNTER → 2022-07-10 15:11 | Outpatient (CLI) | payer OTHER, MEDICAID, SELFPAY ==
--- NOTE | 2022-07-30 08:39 | DIAB.FU ---
Follow-up Diabetes Education Assessment Name: Laura Esteban Date: 07/10/22 Time: 335-4p Dx: Type II Diabetes Laura presents for Dm follow-up. Reports minimal changes since last visit due to her family having the flu. States she has not been able to implement most diet changes or family walks discussed last visit. Endorses low kcal intake over the last week due to flu, though feeling better now. Physical Activity: No change, however they did purchase tennis rackets to increase family tennis games. Self-Monitoring Blood Glucose: Denies any changes. FBG 150s and pre lunch 150s. Diabetes Medications: 500mg Metformin BID 1.2mg Victoza daily Pertinent Labs: 04/2022 HgA1c: 11.3% AST: 60 H ALT: 87 H T H Chol: 224 H LDL: 134 H HDL: 59 Past Medical History: (Last Reviewed 01/20/19 @ 10:15 by Taylor Juarez MD) Acne (1996) Anxiety (2014) Chicken pox (1990) Depression (2014) Hayfever Hypertension Migraines (1997) Plantar warts (1998) Intervention: This participant was very receptive. Provided appropriate educational handouts. Discussed the following topics: Recent blood sugar results and trends Review of general nutrition recommendations and current intake Physical activity plan and impact on blood sugars Diabetes pathophysiology HgA1c measurement and correlation with BG and goals Created SMART goals for patient self-care and success. Goals: Start family walks after dinner Add pro to breakfast Pair CHO and pro at meals/snacks Aim for 30-45g CHO at meals Follow-up: RDN [facility] follow-up recommended. Due to this [facility] leave until Dec, provided other resources for support. Has plans for RD visit regarding bariatric sx. Maya Whitehead, [facility], [facility] Certified Diabetes Care and [facility] P: [phone] Thank you for this referral
== END ==
PROVIDERS: Family Provider Family Medicine; PCP Family Medicine; Referring Provider Family Medicine; Visit Provider Family Medicine
DX: E11.9 Type 2 diabetes mellitus without complications (principal); Z79.84 Long term (current) use of oral hypoglycemic drugs; Z71.3 Dietary counseling and surveillance; Z79.85 Long-term (current) use of injectable non-insulin antidiabetic drugs
CPT/HCPCS: G0108